=== PATIENT | male | born 1980 | race Caucasian/White ===

== ENCOUNTER 2023-05-05 19:22 | Emergency (ER) | payer OTHER ==
[2023-05-05] MEDS ORDERED: HYDROmorphone 1 MG/ML 1 ML SYRINGE IVP STA (19:52)
[2023-05-05] MEDS ORDERED: SODIUM CHLORIDE 0.9% 500 ML 500 ML IV STA (19:52)
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
[2023-05-05] MEDS ORDERED: ACET/COD 300 MG/30 MG STARTER PACK 6 TAB BTL PO STA (20:21)
[2023-05-05 21:09] VITALS: RESP 18
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
[2023-05-05 22:25] VITALS: BP 121/78; PULSE 68; TEMP 98.6
== END 2023-05-05 22:25 | disposition home or self-care (01) ==
LOC: EC 19:22
DX: S82.832A Other fracture of upper and lower end of left fibula, initial encounter for closed fracture (principal); S93.05XA Dislocation of left ankle joint, initial encounter; V23.49XA Other motorcycle driver injured in collision with car, pick-up truck or van in traffic accident, initial encounter; Y92.410 Unspecified street and highway as the place of occurrence of the external cause
CPT/HCPCS: 73600; 73610; 73630; 99284; 96374; 96361; 25605; J1170